=== PATIENT | female | born 1965 | race African-American/Black ===

== ENCOUNTER 2023-10-25 13:12 | Emergency (ER) | payer OTHER, SELFPAY ==
[2023-10-25 13:37] VITALS: BP 112/69; PULSE 81; RESP 16; TEMP 35.8; O2SAT 97; BMI 31.9
--- NOTE | 2023-10-25 13:48 | ED.GENADULT ---
HPI - General Adult General Time Seen by Provider: 13:48 Date Seen: 10/25/23 Chief complaint: Urogenital Problems, Female Stated complaint: pain when urinating Time Seen by Provider: 10/25/23 13:45 Source: patient, family, RN notes reviewed and aerial photograph interpreter (Her daughter is here and is interpreting at the patient's request.) Mode of arrival: ambulatory Limitations: no limitations History of Present Illness HPI narrative: This 58-year-old female is coming in with concern of possible urinary tract infection, also has a complaint of right ankle pain. For about 3 days now she has had increasing painful urination, urinary frequency and urgency. She has noted some hematuria. She has not had any fevers or chills. Today she noticed lower abdominal pain. Her age is 58 but she states they do not have certificate or the process that we have here in the [place]. She still is getting menstrual cycles, they may be irregular and she may not bleed as long but she is still having menstrual cycles. She cannot say for sure that there is no vaginal bleeding. She had a urinary tract infection about 2 years ago and there was no blood in it. Yesterday when she was mowing the yd with a push mower, she had an inversion injury to her ankle. She states she has had injuries to this ankle before. There is no numbness tingling. She is able to walk on it still but does note swelling on the outside of the ankle. Related Data Previous Rx's ?Medication ?Instructions ?Recorded cephalexin 500 mg tablet 500 mg PO TID #15 tabs 10/25/23 Allergies Allergy/AdvReac Type Severity Reaction Status Date / Time No Known Drug Allergies Allergy Verified 10/25/23 16:42 Review of Systems Status of ROS: Reports: 6 or more systems reviewed and unremarkable except as noted in History and below PFSH PFSH Social History Smoking Status: Never smoker Do you use any of these nicotine containing products: None How often do you have a drink containing alcohol: never How often do you have six or more drinks on one occasion: Never AUDIT-C Alcohol total score: 0 Non-prescribed substance use: denies use Exam Const: Vital Signs, click to edit/add: Vital Signs - 24 hr 10/25/23 13:37 Temperature 96.5 F L Pulse Rate [Pulse Oximeter] 81 Respiratory Rate 16 Blood Pressure [Ri ght Upper Arm] 112/69 Pulse Oximetry 97 Oxygen Delivery Me thod Room Air This 58-year-old female his seen in exam room for, she is alert, interactive, no apparent distress and very pleasant woman. Sclera clear, conjugate gaze, able speak in complete sentences. Lungs are clear, good air entry, no wheeze or crackles. CV regular rate and rhythm, no murmur, normal S1-S2, no S3-S4. Abdomen is obese but soft, nondistended, no tenderness really, no rebound or guarding. She points to the lower abdominal area and suprapubic area where she states she is feeling the discomfort but I am certainly not increasing her pain or giving her extensive discomfort on palpation. Pelvic exam is deferred at this point. Inspection of her right lower extremity note some anterolateral swelling along the ankle. She does have some mild tenderness over the distal end of the fibula. Ankle mortise is intact, still has good range of motion. Neurovascular intact. No tenderness along the metatarsals. Documenting provider has reviewed patient's vital signs: yes Course Course ED Course: Will await urinalysis, see if there are suggestions of UTI. Discussed with patient that we may need to consider imaging in further workup. We did review her age discrepancy issue. I do agree with her that she is likely not 58. Certainly sounds like she could have a UTI. This could be other urinary issues such as kidney stone pathology. She is not febrile, does not look ill. There is also the possibility of vaginal bleeding confounding this. She could be para menopausal and may need to consider further workup of pelvic pathology in this evaluation. As for her ankle, certainly has physical symptoms of a sprain, need to rule out underlying fracture. Reevaluation(s) Time of Reevaluation #1: 14:42 Reevaluation #1: Reviewed with patient that her urinalysis is not definitively concerning for infection. There is some microscopic hematuria, no significant pyuria. She has 1+ leukocyte esterase but is nitrite and ketone negative. There is no bacteria seen. We will proceed with CT imaging, some basic lab work. Still awaiting her ankle x-ray as well. Time of Reevaluation #2: 16:50 Reevaluation #2: Did review that there is no fracture on the ankle, provided an Isaac wrap for her ankle sprain. Did review the CT findings, labs are stable. Her CT is actually only showing bladder wall thickening which we discussed goes with the UTI. Will send in antibiotics for her. Vital Signs Vital signs: Initial Vital Signs Temperature 96.5 F L 10/25/23 13:37 Temperature Source Temporal Artery Scan 10/25/23 13:37 Pulse Rate 81 10/25/23 13:37 Respiratory Rate 16 10/25/23 13:37 Blood Pressure 112/69 10/25/23 13:37 Blood Pressure Mean 83 10/25/23 13:37 Blood Pressure Position Sitting 10/25/23 13:37 Pulse Oximetry 97 10/25/23 13:37 Oxygen Delivery Method Room Air 10/25/23 13:37 Vital Signs Temperature 96.5 F L 10/25/23 13:37 Pulse Rate 81 10/25/23 13:37 Respiratory Rate 16 10/25/23 13:37 Blood Pressure 112/69 10/25/23 13:37 Pulse Oximetry 97 10/25/23 13:37 Oxygen Delivery Method Room Air 10/25/23 13:37 Temperature 96.5 F L 10/25/23 13:37 Pulse Rate 81 10/25/23 13:37 Respiratory Rate 16 10/25/23 13:37 Blood Pressure 112/69 10/25/23 13:37 Pulse Oximetry 97 10/25/23 13:37 Oxygen Delivery Method Room Air 10/25/23 13:37 Medical Decision Making Lab Data Lab results reviewed: Yes I reviewed the patient's lab results Labs: Lab Results 10/25/23 10/25/23 Range/Units 13:46 15:00 WBC 8.81 (4.50-11.00) K/uL RBC 4.88 (4.00-5.20) m/uL Hgb 14.0 (12.0-16.0) gm/dL Hct 43.0 (33.0-51.0) % MCV 88 (80-100) fL MCH 29 (26-34) pg MCHC 33 (32-36) gm/dL RDW Coeff of Zainab 13.4 (11.5-15.5) % Plt Count 307 (140-440) K/uL Neut % (Auto) 47.6 (42.0-72.0) % Lymph % (Auto) 40.5 (20-44) % [place] % (Auto) 8.7 (0.0-11.0) % Eos % (Auto) 2.4 (0.0-7.0) % Baso % (Auto) 0.6 (0.0-3.0) % Neut # (Auto) 4.19 (1.7-7.0) K/uL Lymph # (Auto) 3.57 H (0.90-2.90) K/uL [place] # (Auto) 0.80 (0.00-0.90) K/UL Eos # (Auto) 0.21 (0.00-0.50) K/uL Baso # (Auto) 0.05 (0.00-0.30) K/uL Abs Immat Gran (auto) 0.02 (0.00-0.30) K/uL Imm/Tot Granulo (auto) 0.2 % Sodium 140 (135-149) mmol/L Potassium 3.7 (3.6-5.1) mmol/L Chloride 104 (96-114) mmol/L Carbon Dioxide 28 (20-32) mmol/L Anion Gap 8 (7-15) mEq/L BUN 8 (7-30) mg/dL Creatinine 0.7 (0.5-1.5) mg/dL Estimated Creat Clear 75.65 Estimated GFR 100 ml/min Glucose 89 (60-115) mg/dL Calcium 9.7 (8.4-10.6) mg/dL Total Bilirubin 0.4 (0.1-1.5) mg/dL AST 33 (12-35) U/L ALT 39 H (4-35) U/L Alkaline Phosphatase 85 (40-150) U/L Total Protein 7.8 (6.0-8.3) g/dL Albumin 4.4 (3.3-5.0) g/dL Urine Color Yellow (Yellow) Urine Appearance Clear (Clear) Urine pH 7.0 (5.0-8.5) Ur Specific [place] 1.010 (1.000-1.030) Urine Protein Negative (Negative) Urine Glucose (UA) Negative (Negative) Urine Ketones Negative (Negative) Urine Blood 3+ A (Negative) Urine Nitrite Negative (Negative) Urine Bilirubin Negative (Negative) Urine Urobilinogen 0.2 (0.2-1.0) Ur Leukocyte Esterase 1+ A (Negative) Urine RBC 2-5 A (0-2) Urine WBC 2-5 (0-5) Ur Squamous Epith Cells None (None-Few) Urine Bacteria None (None) Imaging Data XR ankle: Attestation: I have reviewed the pertinent imaging results. My impression: I see no acute fracture on my preliminary review, wait radiology over-read. Radiologist's impression: Patient: SPENCER NORRIS Facility:?[facility] Patient ID:?[id number] Site Patient ID:?[id number]. Site :?[id number] Study:?XRay-Extremity Right 3 VIEW ANKLE-10/25/2023 2:59:37 PM Ordering Physician:?Hong Robb Final Report: Indication: Injury and pain Technique: Right ankle 3 views. Comparison: None Findings: Bones: No evidence of fracture. Well-formed plantar heel spur. Joint spaces: Unremarkable. Soft tissues: Lateral soft tissue swelling. Impression: Lateral soft tissue swelling without evidence of fracture. Dictated by Ander Gorman MD @ 10/25/2023 3:42:00 PM (Electronic Signature) CT scan - abdomen: Attestation: I have reviewed the pertinent imaging results. My impression: Did visualize images, do see bladder wall thickening, patient likely has acute cystitis. Wait radiology read to see if they find any other abnormalities. Radiologist's impression: Patient: SPENCER NORRIS Facility:?[facility] Patient ID:?[id number] Site Patient ID:?[id number]. Site :?[id number] Study:?CT-Abdomen/Pelvis W/IV-10/25/2023 4:11:27 PM Ordering Physician:?Hong Robb Final Report: INDICATION: Lower abdominal pain and urinary symptoms. TECHNIQUE: Axial images were obtained from the diaphragm to the pubic symphysis. Reformats were obtained in the coronal and sagittal plane. IV Contrast: 91 cc Isovue 370 Oral Contrast: None COMPARISON: None. FINDINGS: Lower chest: Unremarkable. Liver: Unremarkable. Normal in size and attenuation. No masses. Gallbladder and bile ducts: Status post cholecystectomy. Spleen: Unremarkable. Normal in size without mass. Pancreas: Unremarkable. No mass or inflammation. Adrenal glands: Unremarkable. No nodules. Kidneys: Unremarkable. No masses, stones, or hydronephrosis. Vasculature: Unremarkable. GI tract: Stomach is unremarkable. No dilated loops of large or small intestine. Appendix is normal in caliber. Subcentimeter right lower quadrant mesenteric lymph nodes. Pelvis: Anteverted uterus. No adnexal lesions. Mild bladder distention with diffuse bladder wall thickening noted. Bones: Degenerative disc disease L5-S1. IMPRESSION: 1. Diffuse bladder wall thickening suspicious for cystitis in this clinical setting. 2. Remainder of the abdomen and pelvis is unremarkable. Please note that all CT scans at this facility use dose modulation, iterative reconstruction, and/or weight-based dosing when appropriate to reduce radiation dose to as low as reasonably achievable. Dictated by Ander Gorman MD @ 10/25/2023 4:44:55 PM (Electronic Signature) Discharge Plan Discharge Clinical Impression: Urinary tract infection Qualifiers: Urinary tract infection type: acute cystitis Hematuria presence: with hematuria Qualified Code(s): N30.01 - Acute cystitis with hematuria Ankle sprain Qualifiers: Encounter type: initial encounter Involved ligament of ankle: unspecified ligament Laterality: right Qualified Code(s): S93.401A - Sprain of unspecified ligament of right ankle, initial encounter Patient Disposition: Home, Self-Care Condition: Stable Instructions: Ankle Sprain (ED), Urinary Tract Infection in Women (ED) Additional Instructions: Start oral antibiotics today and take as prescribed. Drink plenty of fluids. For the ankle sprain, can use the Isaac wrap as needed for compression and comfort. Ice, elevate this leg to help decrease pain and swelling. Can use Tylenol and/or ibuprofen per bottle directions as needed for discomfort. If you are not improving from either of these conditions over the next few days for the bladder or the next couple weeks for the ankle, feel you are worsening or have further concerns at any point, please seek re-evaluation. Activity Level: Activity as Tolerated Discharge Diet: Regular Prescriptions: New cephalexin 500 mg tablet 500 mg PO TID Qty: 15 0RF Follow Up/Referrals: Provider,Not a Local [Primary Care Provider] - Stand Alone Forms: Dada Room Info Instructions
[2023-10-25 13:54] LABS: Appearance Urine Clear (Clear); Bilirubin Urine Negative (Negative); Blood Urine 3+ (Negative); Color Urine Yellow (Yellow); Glucose Urine Negative (Negative); Ketones Urine Negative (Negative); Leukocyte Esterase Urine 1+ (Negative); Nitrite Urine Negative (Negative); Protein Urine Negative (Negative); Urobilinogen Urine 0.2 (0.2-1.0)
--- NOTE | 2023-10-25 14:02 | CRLHL7_ITS ---
For Patients: As a result of the Cures Act, medical imaging exams and procedure reports are released immediately into your electronic medical record. You may view this report before your referring provider. If you have questions, please contact your health care provider. Indication: Injury and pain Technique: Right ankle 3 views. Comparison: None Findings: Bones: No evidence of fracture. Well-formed plantar heel spur. Joint spaces: Unremarkable. Soft tissues: Lateral soft tissue swelling. Impression: Lateral soft tissue swelling without evidence of fracture. Dictated by Ander Gorman MD @ 10/25/2023 3:42:00 PM (Electronically Signed)
--- NOTE | 2023-10-25 14:44 | CRLHL7_ITS ---
For Patients: As a result of the Century Cures Act, medical imaging exams and procedure reports are released immediately into your electronic medical record. You may view this report before your referring provider. If you have questions, please contact your health care provider. INDICATION: Lower abdominal pain and urinary symptoms. TECHNIQUE: Axial images were obtained from the diaphragm to the pubic symphysis. Reformats were obtained in the coronal and sagittal plane. IV Contrast: 91 cc Isovue 370 Oral Contrast: None COMPARISON: None. FINDINGS: Lower chest: Unremarkable. Liver: Unremarkable. Normal in size and attenuation. No masses. Gallbladder and bile ducts: Status post cholecystectomy. Spleen: Unremarkable. Normal in size without mass. Pancreas: Unremarkable. No mass or inflammation. Adrenal glands: Unremarkable. No nodules. Kidneys: Unremarkable. No masses, stones, or hydronephrosis. Vasculature: Unremarkable. GI tract: Stomach is unremarkable. No dilated loops of large or small intestine. Appendix is normal in caliber. Subcentimeter right lower quadrant mesenteric lymph nodes. Pelvis: Anteverted uterus. No adnexal lesions. Mild bladder distention with diffuse bladder wall thickening noted. Bones: Degenerative disc disease L5-S1. IMPRESSION: 1. Diffuse bladder wall thickening suspicious for cystitis in this clinical setting. 2. Remainder of the abdomen and pelvis is unremarkable. Please note that all CT scans at this facility use dose modulation, iterative reconstruction, and/or weight-based dosing when appropriate to reduce radiation dose to as low as reasonably achievable. Dictated by Ander Gorman MD @ 10/25/2023 4:44:55 PM (Electronically Signed)
[2023-10-25 15:30] LABS: Basophils Absolute Auto 0.05 K/uL (0.00-0.30); Basophils Percent Auto 0.6 % (0.0-3.0); Eosinophils Absolute Auto 0.21 K/uL (0.00-0.50); Eosinophils Percent Auto 2.4 % (0.0-7.0); Immature Granulocytes Abs Auto 0.02 K/uL (0.00-0.30); Immature Granulocytes Pct Auto 0.2 %; Lymphocytes Absolute Auto 3.57 K/uL (0.90-2.90); Lymphocytes Percent Auto 40.5 % (20-44); Mean Corpuscular HGB Conc 33 gm/dL (32-36); Mean Corpuscular Hemoglobin 29 pg (26-34); Mean Corpuscular Volume 88 fL (80-100); Monocytes Percent Auto 8.7 % (0.0-11.0); Neutrophils Absolute Auto 4.19 K/uL (1.7-7.0); Neutrophils Percent Auto 47.6 % (42.0-72.0); Platelet Count* 307 K/uL (140-440); RDW Coefficient of Variation % 13.4 % (11.5-15.5); Red Blood Count 4.88 m/uL (4.00-5.20); White Blood Count* 8.81 K/uL (4.50-11.00)
[2023-10-25 15:49] LABS: Albumin* 4.4 g/dL (3.3-5.0); Chloride* 104 mmol/L (96-114)
[2023-10-25 15:50] LABS: Potassium* 3.7 mmol/L (3.6-5.1); Sodium* 140 mmol/L (135-149)
[2023-10-25 15:52] LABS: Anion Gap 8 mEq/L (7-15); Aspartate Amino Transferase* 33 U/L (12-35); Bilirubin Total* 0.4 mg/dL (0.1-1.5); Carbon Dioxide* 28 mmol/L (20-32); Creatinine* 0.7 mg/dL (0.5-1.5); Est. Creatinine Clearance* 75.65; Estimated Glomerular Filt Rate 100 ml/min; Total Protein* 7.8 g/dL (6.0-8.3)
[2023-10-25 15:53] LABS: Alanine Aminotransferase* 39 U/L (4-35); Alkaline Phosphatase* 85 U/L (40-150); Blood Urea Nitrogen* 8 mg/dL (7-30); Calcium* 9.7 mg/dL (8.4-10.6); Glucose* 89 mg/dL (60-115)
[2023-10-25 15:55] LABS: Slide Review Reflex No
[2023-10-25 16:59] LABS: C Reactive Protein* 1.4 mg/dL (0.5-1.0)
== END 2023-10-25 17:10 | disposition home or self-care (01) ==
PROVIDERS: Family Medicine; Emergency Provider Family Medicine
DX: N30.01 Acute cystitis with hematuria (principal); S93.401A Sprain of unspecified ligament of right ankle, initial encounter
CPT/HCPCS: 36415; 73610; 74177; 80053; 81001; 85025; 86140; 87086; 99284; 99285; Q9967